=== PATIENT | female | born 1985 | race Caucasian/White ===

== ENCOUNTER 2023-04-26 06:33 | Inpatient (IN) ==
--- NOTE | 2023-04-15 16:10 | Anesthesiology Consultation ---
Date of Service April 15, 2023 Assessment & Plan (1) Encounter for pre-operative examination: Chart Review Chart Review: entry level drafter initiated -COVID screening: Per PAT nursing assessment on 04/15/23. No known COVID-19 positive contacts or current COVID-19 related symptoms. Travel screen negative. Patient vaccinated for Covid. At surgeon discretion if preop Covid testing being done. - Patient seen by cardiology 12/29/22= currently 22 weeks . Referred for assessment echocardiography as new patient due to concern for size disproportion between the aorta and pulmonary artery on initial anatomy scan. Per available outside medical records, the aorta was described as appearing somewhat larger than the pulmonary artery. Do not have copy of these images for independent review at this time. In addition the current is result of in vitro fertilization. Current is otherwise complicated by advanced maternal age. Also mentions that marginal placental insertion and a pocket of fluid around the uterus has been discrepant prior obstetrical ultrasounds. Please report that the baby's heart appears normal. Given today's findings, I believe further follow-up in the cardiology clinic can be on an as-needed basis. No contraindications from a cardiac standpoint to delivering at [facility] as she is currently planning. Pediatric cardiology team at [facility] can be consulted at any time should there be any concern about the baby's cardiovascular status. History Surgery Operation Date: 04/26/23 09:05 Proposed Procedures p Section in LD (Delivery of Baby Through Abdominal Incision) - Sarahi Sanford DO Height/Weight Height: 5 ft 6 in Weight: 77.111 kg Allergies Allergy/AdvReac Type Severity Reaction Status Date / Time No Known Allergies Allergy Verified 04/15/23 15:53 Medications Home Medications Medication Instructions Recorded Confirmed Last Taken folic acid 1 dose PO DAILY 11/25/22 04/15/23 Unknown magnesium 1 dose PO DAILY 11/25/22 04/15/23 Unknown prenat.vits,thaddeus,[id number] 1 tab PO DAILY 11/25/22 04/15/23 Unknown Past Medical History Medical History History of chicken pox Hx of migraines Past Family History Family History Grandmother (Maternal) Diabetes Grandfather (Maternal) Diabetes Denies family history of Ovarian cancer Breast cancer Colorectal cancer Past Surgical History Surgical History History of colposcopy S/P breast augmentation S/P section x 1 S/P hernia repair umbilical S/P laparoscopy S/P wisdom tooth extraction Social History Smoking Status: Never smoker Do You Dip or Chew Tobacco: No Hx Alcohol Use: No Hx Substance Use: No substance use type: does not use
--- NOTE | 2023-04-23 11:34 | History & Physical Report ---
Date of Service April 23, 2023 Assessment & Plan (1) Previous delivery affecting , antepartum: Plan: Reviewed consent in office. Plan for repeat section. History of Present Illness Chief Complaint: csection Primary Care Provider: ZACHARIAH Elaine 37yo here for planned repeat section. IVF/ICSI * Echo - Normal *Growth US Q4wks @28wks *Weekly NSTs @36wks *Weekly KALIN's @36wks(ICSI only) Previous C/S WITH JOSÉ ON 04/26/23 AMA Weekly NST's @ 36 weeks Persistent and enlarging Placental cyst near PCI [facility] consult- 02/03/23 No placental cyst on US at [facility] Allergies Allergy/AdvReac Type Severity Reaction Status Date / Time No Known Allergies Allergy Verified 04/23/23 10:29 Home Medications Medication Instructions Recorded Confirmed Type folic acid 1 dose PO DAILY 11/25/22 04/23/23 History magnesium 1 dose PO DAILY 11/25/22 04/23/23 History prenat.vits,thaddeus,jqr-makd-krjev 1 tab PO DAILY 11/25/22 04/23/23 History Patient History Medical History History of chicken pox Hx of migraines Surgical History History of colposcopy S/P breast augmentation S/P section x 1 S/P hernia repair umbilical S/P laparoscopy S/P wisdom tooth extraction Family History Grandmother (Maternal) Diabetes Grandfather (Maternal) Diabetes Denies family history of Ovarian cancer Breast cancer Colorectal cancer Social History (Updated 11/25/22 @ 11:00 by Kesha Mckeon) Smoking Status: Never smoker Second Hand Exposure: No; Do You Dip or Chew Tobacco: No; Hx Alcohol Use: No Hx Substance Use: No Preferred Language: Mongolian Communication Ability: Effective Blending Supervisor Required: No Beliefs That Will Affect Care: None marital status: marital status details: Anshul Rodriguez [phone]) [phone] Current Living Situation: Spouse and Family Current Living Situation Comment: lives with spouse, son, 2 foster children, dogs current occupational status: employed current occupation: [employer] Nurse Feels Safe at Home: Yes Assistive Devices: Glasses Review of Systems All systems reviewed & are unremarkable except as noted in HPI & below Physical Exam Constitutional: WD/WN, vitals as above Respiratory: normal respiratory effort, lungs clear to auscultation no respiratory distress Cardiovascular: Rate/Rhythm: regular rate and regular rhythm Gastrointestinal (Abdomen): Inspection/Auscultation: abdomen normal to inspection Percussion/Palpation: abdomen soft; abdomen nontender Gravid. No s/s chorio or abruption. Skin: no rashes, warm and dry Psychiatric: A+Ox3, euthymic affect Coding Level of Care Code None Diagnoses Previous delivery affecting , antepartum O34.219
[~2023-04-26 06:33] MED LIST: CITRIC ACID/SODIUM CITRATE 15 ML UDC PO SCH; LACTATED RINGER'S 1,000 ML IV SCH; ceFAZolin 2,000 MG in SYRINGE 0 ML IV SCH
[2023-04-26] MEDS ORDERED: SODIUM CHLORIDE 0.9% 250 ML IV PRN ×2 (07:10→18:57)
[2023-04-26 07:38] LABS: Basophils # (auto) 0.09 K/uL (0-0.2); Basophils % (auto) 0.9 %; Eosinophils # (auto) 0.26 K/uL (0-0.50); Eosinophils % (auto) 2.5 %; Hematocrit (blood only) 29.8 % (37.0-47.0); Hemoglobin 9.6 g/dl (12.0-16.0); Mean Corpuscular Hemoglobin 26.6 pg (25.0-34.0); Mean Corpuscular Hgb Conc 32.2 g/dL (32.0-36.0); Mean Corpuscular Volume 82.5 fL (80.0-100.0); Mean Platelet Volume 10.1 fL (9.4-12.4); Monocytes # (auto) 0.77 K/uL (0.11-0.59); Monocytes % (auto) 7.3 %; Neutrophils # (auto) 7.07 K/uL (1.40-6.50); Neutrophils % (auto) 67.3 %; Platelet Count 301 K/uL (130-400); RDW Coefficient of Variation 13.7 % (11.5-14.5); RDW Standard Deviation 41.1 fL (36.4-46.3); Red Blood Count 3.61 M/uL (4.20-5.40); White Blood Count 10.49 K/ul (4.8-10.8)
[2023-04-26] MEDS ORDERED: MoRPHine SULFATE PF 1 MG/ML 10 ML AMP/VIAL ONE (08:15)
[2023-04-26] MEDS ORDERED: OXYTOCIN 10 UNITS/ML VIAL ONE (08:15)
[2023-04-26] MEDS ORDERED: KETOROLAC 30 MG/ML VIAL ONE (08:15)
[2023-04-26] MEDS ORDERED: fentaNYL citrate PF 100 MCG/2 ML VIAL ONE (08:15)
[2023-04-26] MEDS ORDERED: ONDANSETRON INJ 2 MG/ML 2 ML VIAL ONE (08:15)
--- NOTE | 2023-04-26 08:54 | History & Physical Bridge Note ---
Date of Service April 26, 2023 History & Physical Bridge Note I have examined the patient, reviewed the History & Physical and in the interval since the performance of the History & Physical I have noted the following changes of clinical significance: no changes noted
[2023-04-26] MEDS ORDERED: KETOROLAC 30 MG/ML VIAL IV PRN (10:19)
[2023-04-26] MEDS ORDERED: NALOXONE HCL 0.4 MG/1 ML VIAL/CARP IV PRN (10:19)
[2023-04-26] MEDS ORDERED: ONDANSETRON INJ 2 MG/ML 2 ML VIAL IV PRN (10:19)
[2023-04-26] MEDS ORDERED: MoRPHine SULFATE PF 1 MG/ML 10 ML AMP/VIAL INT SPINAL ONE (10:19)
[2023-04-26] MEDS ORDERED: HYDROmorphone INJ 0.5 MG/0.5 ML SYR IV PRN (10:19)
[2023-04-26] MEDS ORDERED: LACTATED RINGER'S 500 ML IV PRN (10:19)
[2023-04-26] MEDS ORDERED: ACETAMINOPHEN 1,000 MG/100 ML VIAL IV PRN (10:19)
[2023-04-26] MEDS ORDERED: PROMETHAZINE HCL 12.5 MG in SODIUM CHLORIDE 0.9% 50 ML IV PRN (10:19)
[2023-04-26] MEDS ORDERED: NALBUPHINE HCL INJ 10 MG/ML AMP IV PRN (10:19)
[2023-04-26] MEDS ORDERED: diphenhydrAMINE 50 MG/ML VIAL IV PRN (10:19)
[2023-04-26] MEDS ORDERED: ePHEDrine sulfate 50 MG/ML AMP IV PRN (10:19)
[2023-04-26] MEDS ORDERED: NALOXONE HCL 1 MG in SODIUM CHLORIDE 0.9% 1000ML 1,000 ML IV PRN (10:19)
[2023-04-26] MEDS ORDERED: NALOXONE HCL 0.08 MG in SYRINGE 1.8 ML IV PRN (10:19)
[2023-04-26] MEDS ORDERED: DC INTRASPINAL MORPHINE SCH (10:30)
[2023-04-26] MEDS ORDERED: NO NARCOTICS OR SEDATIVES SCH (10:30)
[2023-04-26] MEDS ORDERED: SODIUM CHLORIDE 0.9% 1000ML 1,000 ML IV SCH (10:30)
[2023-04-26 10:57] LABS: Base Excess Cord Venous Blood -0.8 mEq/L (-7.7-1.9); Cord Venous Blood HCO3 25 mmol/L (18.4-26.8); Cord Venous Blood PCO2 44 mmHg (30.4-57.2); Cord Venous Blood PO2 24 mmHg (14.1-43.3); Cord Venous Blood pH 7.36 (7.20-7.44); O2 Saturation Cord Venous Bld < 60.0 % (<68)
[2023-04-26 10:59] LABS: Base Excess Cord Arterial Bld -0.7 mEq/L (-9-1.8); CO2 Cord Arterial Blood 54 mmHg (39.1-73.5); HCO3 Cord Arterial Blood 27 mmol/L (19.7-28.5); Oxygen Sat Cord Arterial Blood < 60.0 % (<60); PO2 Cord Arterial Blood 18 mmHg (4.1-31.7)
--- NOTE | 2023-04-26 11:24 | Operative Report ---
PG Post Operative Report Pre & Post Diagnosis Operation Date: 04/26/23 08:50 Pre-Op Diagnosis: Repeat section Post-Op Diagnosis: Repeat section I identified the patient and participated in the time-out.: Yes Procedure Operation Date: 04/26/23 08:50 Actual Procedures Repeat low transverse Section in LD for a living female child at [facility] - Sarahi Sanford, DO Surgeon Sarahi Sanford, DO Machine Operations Supervisor Mingo Wren RN Estimated Blood Loss 500 Findings Consistent with Post-Op Diagnosis Normal appearing uterus, fallopian tubes, ovaries. Viable female , please see nursery records for weight/apgars. Specimens placenta, cord blood, cord gas. Drains [place] clear yellow Anesthesia Type Spinal Complications none Disposition Accompanied Patient To Recovery: No Disposition: L&D Indications 37yo @ 39 02/19, h/o x 1 with desire for repeat, IVF , AMA, ?placental cyst Description of Procedure The patient was seen in her labor and delivery room, risks benefits and alternatives to surgery were reviewed. Informed consent obtained. Questions were answered. She was taken to the operating room, spinal anesthesia was administered. She was then prepared and draped in the usual sterile fashion in the supine position with a leftward tilt. Timeout was confirmed. A Pfannenstiel skin incision was made through the prior incision with a scalpel, and carried through to the underlying layer of fascia. Fascia was nicked at midline, and this incision was extended bilaterally. The superior aspect of the fascial incision was grasped with Mary Ann clamps x2, elevated off the underlying rectus abdominis muscles, and dissected sharply and bluntly. In similar fashion, the inferior aspect of the fascial incision was dissected. The rectus abdominis muscles were , and the peritoneum was entered bluntly digitally. This was extended bilaterally. The bladder flap was taken down carefully using Metzenbaum scissors. Using a new scalpel, a low transverse uterine incision was created. Clear amniotic fluid noted. The infant was delivered from a cephalic presentation. The head delivered, followed by shoulders and body. Spontaneous cry on the field. The cord was doubly clamped and cut, and the was handed off to the [facility] fire alarm technician. A segment was retained for cord gases. Cord blood was obtained. The placenta was delivered spontaneously intact. The uterus was exteriorized, and cleared of all clots and debris. The hysterotomy incision was reapproximated using 0 Vicryl in a running locked stitch. A second layer of the same suture was used to imbricate the incision. Posterior uterus was evaluated and normal. The uterus was returned to the abdomen, and gutters were cleared of clots and debris. Excellent hemostasis was observed. The fascial incision was reapproximated using 0 Vicryl in a running stitch. The subcutaneous tissue was irrigated, and reapproximated using 2-0 plain gut in a running stitch. The skin was reapproximated using 4-0 Vicryl in a running subcuticular stitch. Steri-Strips and a bandage were applied. The patient tolerated the procedure well, and will be taken to the recovery area in stable and good condition. I attest to the content of the Intraoperative Record and any orders documented therein. Any exceptions are noted below. OB Procedure Charges 75395
--- NOTE | 2023-04-26 12:50 | Anesthesiology Progress Note ---
Date of Service April 26, 2023 Anesthesia Post Procedure Vital Signs Vital Signs: Temp Pulse Resp BP Pulse Ox 04/26/23 12:35 83 18 104/71 98 04/26/23 12:25 86 18 99/62 L 99 04/26/23 12:15 96 H 18 102/58 L 98 04/26/23 12:05 83 18 103/61 98 04/26/23 11:55 98 H 18 100/57 L 99 04/26/23 11:45 109 H 16 92/55 L 99 04/26/23 11:33 113 H 16 104/56 L 99 04/26/23 12:45 82 106/68 99 04/26/23 12:40 97 H 99 04/26/23 12:35 83 104/71 98 04/26/23 12:30 94 H 99 04/26/23 12:25 86 99/62 L 99 04/26/23 12:20 92 H 98 04/26/23 12:15 96 H 102/58 L 98 04/26/23 12:10 100 H 99 04/26/23 12:05 102 H 99 04/26/23 12:06 102 H 103/61 04/26/23 12:00 104 H 99 04/26/23 11:55 108 H 99 04/26/23 11:56 106 H 100/57 L 04/26/23 11:50 108 H 98 04/26/23 11:45 99 H 92/55 L 99 04/26/23 11:43 101 H 94/61 L 04/26/23 11:40 94 H 99 04/26/23 11:35 108 H 97 04/26/23 11:33 100 H 104/56 L 04/26/23 11:30 106 H 100 04/26/23 11:25 99 H 100 04/26/23 11:20 104 H 92/52 L 100 04/26/23 07:37 98.1 F 100 H 18 125/84 04/26/23 06:39 97.9 F 93 H 16 134/75 Transfer of Care Handoff Completed per policy Notes Mental Status: alert / awake / arousable and participated in evaluation Patient Amnestic to Procedure: No Nausea / Vomiting: adequately controlled Pain: adequately controlled Airway Patency, RR, SpO2: stable & adequate BP & HR: stable & adequate Hydration State: stable & adequate Neuraxial Anesthesia: was administered and sensory block is resolving Anesthetic Complications: no major complications apparent and Pt Satisfied with anesthetic care
[2023-04-26] MEDS ORDERED: HYDROCORTISONE ACETATE 25 MG SUPP PR PRN (12:55)
[2023-04-26] MEDS ORDERED: LACTATED RINGER'S 1,000 ML IV SCH (12:55)
[2023-04-26] MEDS ORDERED: DIPHTHERIA/TETANUS/PERTUSSIS Vaccine (Tdap, Age 7+yrs) 0.5mL SYR/VL IM ONE (12:55)
[2023-04-26] MEDS ORDERED: BENZOCAINE 20% AER SPR 82.5 GM CAN EXT PRN (12:55)
[2023-04-26] MEDS ORDERED: MAGNESIUM HYDROXIDE SUSP 30 ML UDC PO PRN (12:55)
[2023-04-26] MEDS ORDERED: SENNA 8.6 MG TAB PO PRN (12:55)
[2023-04-26] MEDS: OXYTOCIN 30 UNITS in LACTATED RINGER'S 1,000 ML IV SCH ×2 (14:04→23:51)
[2023-04-26] MEDS ORDERED: LACTATED RINGER'S 500 ML IV ONE (17:11)
[2023-04-26] MEDS: SIMETHICONE 80 MG CHEW PO SCH ×2 (17:12→20:39)
[2023-04-26 18:12] LABS: Hematocrit (blood only) 20.8 % (37.0-47.0); Hemoglobin 6.8 g/dl (12.0-16.0)
--- NOTE | 2023-04-26 19:00 | Obstetrical Progress Note ---
Date of Service April 26, 2023 Assessment & Plan Admission and Anticipated Discharge Date Admission Date: April 26, 2023 Subjective Postoperatively, patient has had low urine output over the past 4 hours - 50ml total over 4 hours. I ordered 500cc fluid bolus, and H/H. Hemoglobin preop was 9.6, this evening Hgb was 6.8. BP and pulse have been normal. On exam, Patient is awake and talking, sitting up in bed with visitors, . Abdomen is soft, nontender. Incision is bandaged, no blood. Fundus firm. Scant lochia. Pat has a small amount of yellow urine. No bruising of abdomen or along flanks. Given the Hgb drop to <7, and decreased urine output - I ordered CT abd/pelvis w/wo contrast to assess for intraabdominal bleeding. Will also give 2u PRBC to replenish Hgb. Differential is intraabdominal bleeding vs dehydration vs expected postoperative drop. Discussed with patient, reviewed informed consent for transfusion, she is agreeable. Will recheck H/H at midnight and again at 6am. Results & Data Vital Signs (Past 12 Hours) Vital Signs Temp Pulse Pulse Resp BP BP Pulse Ox 04/26/23 16:15 18 99 04/26/23 17:32 16 97 04/26/23 15:15 18 98 04/26/23 14:15 18 98 04/26/23 14:15 36.4 C L 85 18 112/74 98 04/26/23 13:35 85 18 112/68 99 04/26/23 13:05 85 16 114/70 98 04/26/23 12:35 83 18 104/71 98 04/26/23 12:25 86 18 99/62 L 99 04/26/23 12:15 96 H 18 102/58 L 98 04/26/23 12:05 83 18 103/61 98 04/26/23 11:55 98 H 18 100/57 L 99 04/26/23 11:45 109 H 16 92/55 L 99 04/26/23 11:33 113 H 16 104/56 L 99 04/26/23 13:35 86 112/68 99 04/26/23 13:30 94 H 99 04/26/23 13:25 86 116/66 100 04/26/23 13:20 88 99 04/26/23 13:15 88 99 04/26/23 13:16 88 104/59 L 04/26/23 13:10 82 100 04/26/23 13:05 82 98 04/26/23 13:06 85 114/70 04/26/23 13:00 100 H 99 04/26/23 12:55 90 108/64 99 04/26/23 12:50 92 H 100 04/26/23 12:45 82 106/68 99 04/26/23 12:40 97 H 99 04/26/23 12:35 83 104/71 98 04/26/23 12:30 94 H 99 04/26/23 12:25 86 99/62 L 99 04/26/23 12:20 92 H 98 04/26/23 12:15 96 H 102/58 L 98 04/26/23 12:10 100 H 99 04/26/23 12:05 102 H 99 04/26/23 12:06 102 H 103/61 04/26/23 12:00 104 H 99 04/26/23 11:55 108 H 99 04/26/23 11:56 106 H 100/57 L 04/26/23 11:50 108 H 98 04/26/23 11:45 99 H 92/55 L 99 04/26/23 11:43 101 H 94/61 L 04/26/23 11:40 94 H 99 04/26/23 11:35 108 H 97 04/26/23 11:33 100 H 104/56 L 04/26/23 11:30 106 H 100 04/26/23 11:25 99 H 100 04/26/23 11:20 104 H 92/52 L 100 04/26/23 07:37 36.7 C 100 H 18 125/84 O2 Del Method 04/26/23 16:15 04/26/23 17:32 04/26/23 15:15 04/26/23 14:15 04/26/23 14:15 Room Air 04/26/23 13:35 04/26/23 13:05 04/26/23 12:35 04/26/23 12:25 04/26/23 12:15 04/26/23 12:05 04/26/23 11:55 04/26/23 11:45 04/26/23 11:33 04/26/23 13:35 04/26/23 13:30 04/26/23 13:25 04/26/23 13:20 04/26/23 13:15 04/26/23 13:16 04/26/23 13:10 04/26/23 13:05 04/26/23 13:06 04/26/23 13:00 04/26/23 12:55 04/26/23 12:50 04/26/23 12:45 04/26/23 12:40 04/26/23 12:35 04/26/23 12:30 04/26/23 12:25 04/26/23 12:20 04/26/23 12:15 04/26/23 12:10 04/26/23 12:05 04/26/23 12:06 04/26/23 12:00 04/26/23 11:55 04/26/23 11:56 04/26/23 11:50 04/26/23 11:45 04/26/23 11:43 04/26/23 11:40 04/26/23 11:35 04/26/23 11:33 04/26/23 11:30 04/26/23 11:25 04/26/23 11:20 04/26/23 07:37 PG Care Time/CCT Total # of Minutes Spent Total Time Spent with Patient: Total time spent is greater than 50% in coordination of care (as documented) at patient's floor/unit and/or counseling patient: Coding Level of Care Code None Diagnoses
[2023-04-26] MEDS ORDERED: OPTIRAY 320 500ml IV ONE (19:51)
--- NOTE | 2023-04-26 20:26 | CT Scan Report ---
Exam(s): CT ABDOMEN + PELVIS W/WO Contrast IV Amt: 90ml optiray 320 EXAM: CT Abdomen and Pelvis Without and With Intravenous Contrast CLINICAL HISTORY: Reason for exam: concern for hemorrhage. TECHNIQUE: Axial computed tomography images of the abdomen and pelvis without and with intravenous contrast. CTDI is 20.14 mGy and DLP is 1043.23 mGy-cm. Automated exposure control was utilized for the study. A dose lowering technique was utilized adhering to the principles of ALARA. CONTRAST: Patient received 90ml optiray 320 of IV contrast COMPARISON: No relevant prior studies available. FINDINGS: Atelectasis at the lung bases. Bilateral breast implants. No focal hepatic lesion. Layering hyperdensity in the gallbladder may represent sludge. Normal spleen, adrenal glands, and pancreas. No renal stones. No hydronephrosis. The catheter terminates in the urinary bladder. Recent section. There is mild induration and air along the Pfannenstiel incision. Debris and foci of air are present at the anterior uterine incision site. Small blood products are present between the uterine incision and urinary bladder, which is decompressed. No bladder flap hematoma. There is air and hyperdense debris in the endometrial cavity, which should be evaluated with a dedicated ultrasound to evaluate for retained products of conception. Mild air free fluid in the upper abdomen is likely postoperative. IMPRESSION: Recent section. Mild induration and air along the Pfannenstiel incision. Debris and foci of air are present at the anterior uterine incision site. Small blood products are present between the uterine incision and urinary bladder, which is decompressed. No bladder flap hematoma. Air and hyperdense debris in the endometrial cavity, which should be evaluated with a dedicated ultrasound to evaluate for retained products of conception. Electronically signed by: Saúl Antoine MD 04/26/23 20:25 PM
[2023-04-26] MEDS: DOCUSATE SODIUM 100 MG CAP PO SCH (20:39)
[2023-04-27 02:10] LABS: Hematocrit (blood only) 26.2 % (37.0-47.0); Hemoglobin 8.8 g/dl (12.0-16.0)
[2023-04-27] MEDS ORDERED: diphenhydrAMINE 50 MG/ML VIAL IV PRN (04:19)
[2023-04-27] MEDS ORDERED: oxyCODONE/ACETAMINOPHEN 5mg/325mg TAB PO PRN (04:19)
[2023-04-27] MEDS ORDERED: ONDANSETRON INJ 2 MG/ML 2 ML VIAL IV PRN (04:19)
[2023-04-27] MEDS ORDERED: diphenhydrAMINE Capsule 25 MG CAP PO PRN (04:19)
[2023-04-27] MEDS ORDERED: PROMETHAZINE HCL 25 MG in SODIUM CHLORIDE 0.9% 50 ML IV PRN (04:19)
[2023-04-27] MEDS ORDERED: KETOROLAC 30 MG/ML VIAL IV PRN (04:19)
[2023-04-27 07:10] LABS: Basophils # (auto) 0.09 K/uL (0-0.2); Basophils % (auto) 0.6 %; Eosinophils # (auto) 0.25 K/uL (0-0.50); Eosinophils % (auto) 1.6 %; Hematocrit (blood only) 26.7 % (37.0-47.0); Immature Granulocytes # (auto) 0.16 K/uL (0.01-0.20); Lymphocytes # (auto) 1.96 K/uL (1.2-3.4); Lymphocytes % (auto) 12.3 %; Mean Corpuscular Hemoglobin 27.5 pg (25.0-34.0); Mean Corpuscular Hgb Conc 33.7 g/dL (32.0-36.0); Mean Corpuscular Volume 81.7 fL (80.0-100.0); Mean Platelet Volume 9.9 fL (9.4-12.4); Monocytes # (auto) 1.31 K/uL (0.11-0.59); Monocytes % (auto) 8.2 %; Neutrophils # (auto) 12.23 K/uL (1.40-6.50); Neutrophils % (auto) 76.3 %; Platelet Count 224 K/uL (130-400); RDW Coefficient of Variation 13.7 % (11.5-14.5); RDW Standard Deviation 40.6 fL (36.4-46.3); Red Blood Count 3.27 M/uL (4.20-5.40)
[2023-04-27] MEDS: DOCUSATE SODIUM 100 MG CAP PO SCH ×2 (07:59→20:01)
[2023-04-27] MEDS: SIMETHICONE 80 MG CHEW PO SCH ×4 (07:59→20:01)
[2023-04-27] MEDS: PRENATAL VITAMIN 1 TAB PO SCH (07:59)
[2023-04-27] MEDS: FERROUS SULFATE 325 MG TAB PO SCH (07:59)
--- NOTE | 2023-04-27 08:38 | Obstetrical Progress Note ---
Date of Service April 27, 2023 Assessment & Plan (1) Previous delivery affecting , antepartum: POD# 1 doing well. No concerns. Labs have been normal after 2u PRBC last night. Vitals normal, patient feeling well. Suspect this was actually just a postoperative Hgb drop, rather than an intraabdominal bleed. Routine postop care. Incision c/d/i. Subjective Ambulation: ambulating normally Voiding: no voiding problems Diet Tolerance:: regular diet Lochia:: Moderate Review of Systems All systems reviewed & are unremarkable except as noted in HPI & below Physical Exam Constitutional WD/WN, vitals as above no acute distress Respiratory normal respiratory effort Cardiovascular Rate/Rhythm: regular rate and regular rhythm Gastrointestinal (Abdomen) Inspection/Auscultation: abdomen normal to inspection; abdomen not distended Percussion/Palpation: abdomen soft Genitourinary OB Exam Abdomen: + fundal height Fundus: + firm; not tender Results & Data Vital Signs (Past 12 Hours) Vital Signs Temp Pulse Pulse Resp BP BP Pulse Ox 04/27/23 04:20 20 97 04/27/23 04:20 36.8 C 90 20 100/63 97 04/27/23 03:30 20 98 04/27/23 02:30 20 98 04/27/23 01:30 20 98 04/27/23 01:28 36.9 C 96 H 18 104/65 98 04/27/23 00:30 18 97 04/26/23 22:30 36.6 C 90 18 108/73 99 04/27/23 00:55 84 18 108/72 97 04/26/23 23:55 89 18 108/73 98 04/26/23 23:25 90 18 108/73 98 04/26/23 22:30 18 98 04/26/23 23:25 18 99 04/26/23 23:10 36.8 C 90 18 105/72 98 04/26/23 22:49 36.8 C 90 18 105/72 96 04/26/23 22:45 36.8 C 88 18 110/75 99 04/26/23 22:30 18 98 04/26/23 22:02 36.6 C 79 18 112/69 98 04/26/23 21:30 18 98 04/26/23 21:30 36.5 C 101 H 18 115/77 98 04/26/23 21:15 36.6 C 92 H 18 115/74 99 04/26/23 20:55 36.7 C 94 H 18 113/75 100 O2 Del Method 04/27/23 04:20 04/27/23 04:20 Room Air 04/27/23 03:30 04/27/23 02:30 04/27/23 01:30 04/27/23 01:28 04/27/23 00:30 04/26/23 22:30 Room Air 04/27/23 00:55 04/26/23 23:55 04/26/23 23:25 04/26/23 22:30 04/26/23 23:25 04/26/23 23:10 04/26/23 22:49 04/26/23 22:45 04/26/23 22:30 04/26/23 22:02 04/26/23 21:30 04/26/23 21:30 04/26/23 21:15 04/26/23 20:55
[2023-04-27] MEDS: IBUPROFEN 600 MG TAB PO PRN (17:29)
[2023-04-27] MEDS ORDERED: bisacodyL 5 MG TABEC PO SCH (20:00)
[2023-04-27] MEDS: ACETAMINOPHEN 325 MG TAB PO PRN (20:03)
[2023-04-28 06:05] LABS: Hematocrit (blood only) 26.9 % (37.0-47.0); Hemoglobin 8.8 g/dl (12.0-16.0)
[2023-04-28] MEDS: IBUPROFEN 600 MG TAB PO PRN ×3 (06:17→20:04)
--- NOTE | 2023-04-28 08:08 | Obstetrical Progress Note ---
Date of Service April 28, 2023 Assessment & Plan (1) Encounter for care and examination after delivery: Day 2 status post section. Patient doing well. Hemoglobin stable at 8.8. routine care. Subjective Ambulation: ambulating normally Voiding: no voiding problems Passing Gas:: Yes Diet Tolerance:: regular diet Lochia:: Moderate Feeding Type:: breast feeding Physical Exam Constitutional WD/WN, vitals as above Respiratory normal respiratory effort; no respiratory distress and no labored breathing Gastrointestinal (Abdomen) Inspection/Auscultation: abdomen normal to inspection; abdomen not distended Percussion/Palpation: abdomen soft; abdomen nontender, no guarding and abdomen not rigid Genitourinary OB Exam Abdomen: + fundal height Fundus: + firm and + relation to umbilicus (Below); not tender or not boggy Results & Data Vital Signs (Past 12 Hours) Vital Signs Temp Pulse Resp BP Pulse Ox O2 Del Method 04/28/23 07:28 36.7 C 97 H 18 130/69 99 Room Air 04/27/23 23:35 36.6 C 88 18 118/75
[2023-04-28] MEDS: SIMETHICONE 80 MG CHEW PO SCH ×4 (08:20→20:04)
[2023-04-28] MEDS: FERROUS SULFATE 325 MG TAB PO SCH (08:21)
[2023-04-28] MEDS: DOCUSATE SODIUM 100 MG CAP PO SCH ×2 (08:21→20:04)
[2023-04-28] MEDS: PRENATAL VITAMIN 1 TAB PO SCH (08:21)
[2023-04-28] MEDS ORDERED: bisacodyL 10 MG SUPP PR PRN (11:31)
[2023-04-28] MEDS: ACETAMINOPHEN 325 MG TAB PO PRN ×2 (12:39→23:27)
--- NOTE | 2023-04-29 07:20 | Obstetrical Progress Note ---
Date of Service April 29, 2023 Assessment & Plan (1) Encounter for care and examination after delivery: Ready for D/C Subjective Ambulation: ambulating normally Voiding: no voiding problems Passing Gas:: Yes Diet Tolerance:: regular diet Lochia:: Small Feeding Type:: breast feeding Physical Exam Constitutional WD/WN, vitals as above Eyes PERRL, conjunctivae normal, anicteric sclerae Neck normal visual inspection Respiratory normal respiratory effort and able to speak in complete sentences; no respiratory distress and no labored breathing Cardiovascular Rate/Rhythm: regular rate and regular rhythm Extremities: no edema Chest (Breasts) Chest: normal inspection of chest Gastrointestinal (Abdomen) Inspection/Auscultation: abdomen normal to inspection Soft, postgravid, steri strips on intact incision Psychiatric A+Ox3, euthymic affect Genitourinary OB Exam Abdomen: + fundal height Fundus: + firm and + relation to umbilicus (fundus just below umbilicus); not tender Results & Data Vital Signs (Past 12 Hours) Vital Signs Temp Pulse Resp BP Pulse Ox O2 Del Method 04/28/23 23:20 98.1 F 92 H 20 126/81 98 Room Air 04/28/23 20:00 97.9 F 88 18 121/78 98 Room Air
[2023-04-29] MEDS: DOCUSATE SODIUM 100 MG CAP PO SCH (07:53)
[2023-04-29] MEDS: IBUPROFEN 600 MG TAB PO PRN (07:54)
[2023-04-29] MEDS: FERROUS SULFATE 325 MG TAB PO SCH (07:54)
[2023-04-29] MEDS: SIMETHICONE 80 MG CHEW PO SCH (07:55)
[2023-04-29] MEDS: PRENATAL VITAMIN 1 TAB PO SCH (07:55)
--- NOTE | 2023-05-07 15:17 | Discharge Summary ---
Date of Service May 07, 2023 Admission HPI Per Admitting Provider 37yo here for planned repeat section. IVF/ICSI * Echo - Normal *Growth US Q4wks @28wks *Weekly NSTs @36wks *Weekly KALIN's @36wks(ICSI only) Previous C/S WITH JOSÉ ON 04/26/23 AMA Weekly NST's @ 36 weeks Persistent and enlarging Placental cyst near PCI [facility] consult- 02/03/23 No placental cyst on US at [facility] Discharge Data Consultations 04/26/23 06:48 Consult Anesthesiology Stat Procedures Performed Operation Date: 04/26/23 08:50 Actual Procedures p Section in LD (Delivery of Baby Through Abdominal Incision) for a living female child at 1024(Bilateral) - Sarahi Sanford, Hospital Course (1) resulting from in vitro fertilization, antepartum: (2) Previous delivery affecting , antepartum: Plan Repeat section, 2u PRBC transfused d/t Hgb drop, no further blood needed and remainder of course uneventful. DC home POD3. Coding Level of Care Code None Diagnoses resulting from in vitro fertilization, antepartum O09.819 Previous delivery affecting , antepartum O34.219
--- NOTE | 2023-05-08 04:36 | Coding Query ---
CODING QUERY To promote full compliance with coding requirements relating to patient care, provider participation is requested in all cases of chief technical officer uncertainty. Please assist us with the question(s) below: Coding Question(s): Patient admitted for repeat section. Progress note documented drop in hgb under 7. 2 Units Packed Cells given. Please document the diagnosis associated with the transfusion .Thanks for your help! Fred Hugo [facility] Physician's Response(s): acute anemia blood loss Principal Diagnosis: "that condition established after study, to be chiefly responsible for occasioning the admission of the patient to the hospital for care." Co-Existing Principal Diagnosis: "when two or more diagnoses equally meet the criteria for principal diagnosis as determined by the circumstances of admission, diagnostic work up, and/or therapy provided, and the Alphabetic Index, Tabular List, or another coding guideline does not provide sequencing direction, any one of the diagnoses may be sequenced first." "When the physician has documented what appears to be a current diagnosis in the body of the record, but has not included the diagnosis in the final diagnostic statement, the physician should be asked whether the diagnosis should be added." (Source Coding Clinic 2 QTR90. p3-4) KEELY
== END 2023-04-29 12:35 | disposition home or self-care (01) | DRG 787 ==
LOC: 4S1 06:33 → EDSTATUS 09:05 → 4E2 13:55